=== PATIENT | male | born 1960 | race Caucasian/White ===

== ENCOUNTER → 2016-06-04 | Day surgery (SDC) | payer OTHER ==
[~2016-06-04] VITALS: Ht 177.8 cm; Wt 86.2 kg
[~2016-06-04] MED LIST: AMIODARONE HCL200 M1; AMLODIPINE BESYL5 M1; ASPIRIN EC81 M1; LISINOPRIL40 M1; METOPROLOL SUCC50 M2; SYNTHROID137 MCG
--- NOTE | 2016-06-06 17:59 | Operative Report ---
Operative/Inv Procedure Report Surgery Date: 06/04/16 Name of Procedure: Laparoscopic preperitoneal mesh repair of bilateral hernias, and open mesh repair of umbilical incarcerated hernia Pre-Operative Diagnosis: Bilateral inguinal hernias and incarcerated umbilical hernia Post-Operative Diagnosis: Same Estimated Blood Loss: scant Surgeon/Farm Equipment Mechanic: BRENNA MAN,NICOLAS Kay Anesthesia: general endotracheal tube Operative/Procedure Note Note: Patient was positioned supine on the table. After successful induction of general anesthesia the inguinal and surrounding areas were clipped prepped and draped in the usual sterile fashion. After injection of local anesthetic at the bottom of the umbilicus off the midline, to the right, a 1 1/2 cm curved incision was made with a 15 blade, then deepened through Luna's fascia, sweeping off the rectus sheath. A horizontal 1-1/2 cm incision was made between the fibers, elevating these edges with 0 Vicryl stay sutures. Then retracting the muscle laterally, clearing off the posterior rectus sheath, this space is developed down the midline to the pubis sequentially, with an S retractor, a peanut dissector, then the balloon-camera device, inflating it 30-40 pumps while watching how it opens up the space bilaterally, keeping the epigastrics up. The balloon is then replaced with a 10 mm Linares trocar, inserted, shortened, and secured with the stay sutures, gas turned on to 12 not 15 mm. Then two 5 mm trochars are inserted in the midline just below the camera, spaced by approximately 3 cm. We approached the right side first. Using mostly blunt dissection with peanuts to define the anatomy, first Jose G's ligament is swept off medially, checking the medial spaces, direct and femoral. There were no hernias there. Then briefly skipping over the area of the iliac fat pad, we developed the iliopubic tract out laterally to the iliac crest. Then we returned to the area of the fat pad where the hernia sac and the cord structures are adherent, coursing up into an attenuated deep ring. The cord structures form a triangle with the vas approaching medially and the main vessels approaching laterally, with the apex at the deep ring. There was preperitoneal fat up inside the deep ring, (on both sides greater on the left), in front that was dragged down and out, helping identify the distal lip of the hernia sac, which is then carefully peeled off the cord structures, especially the vas. The cord is also from the underlying iliac fat. Once the hernia sac is from the cord structures down to the base of this "triangle," a Parietex sided mesh with the suture, is marked and stuffed down the camera trocar, then unfurled in a systematic fashion, first with the smaller leaflet passing behind the cord structures, until the flap covers the epigastrics, covering the deep ring, then the larger leaflet is released from the suture, double-covering the smaller one, but also extends laterally out to the iliac crest, medially over Jose G's ligament, and superiorly towards the camera. There is a third part of the mesh, that covers the iliac fat pad like a skirt. The mesh was adjusted back and forth so that the keyhole is centered around the cord , lays flat and the edges are not curling. Next we switched sides and dissected out the left in similar fashion as was symmetric except at the preperitoneal fat up in the deep ring was more and adherent this was the larger hernia clinically. So both sides were indirect defects after getting after dissecting a space in getting the mesh and just like on the right side, they crisscrossed in the middle, we then did a trial run of letting the gas escape a little bit to see how the mesh would lay as the peritoneum comes back down is done, it was difficult to get the mesh to lay flat, patient had a short narrow pelvis so I used an absorbable tackers one each side just lateral to the epigastrics to hold the superior leaflets, then when we're satisfied how the 2 meshes lay, we let rest of the gas escape, pulling out the instruments and trochars. The fascia is closed with a [id number] 0 Vicryl suture, tying the stay sutures on top. Then we closed the 3 skin incisions with interrupted 4-0 Monocryl, 3 for the umbilical, one each for the smaller ones, followed by Mastisol, Steri-Strips and Band-Aids. Then we turned our attention to the umbilical hernia I used a periumbilical incision because this hernia happened to be on the right side of the umbilicus. Dissecting superiorly we cleared off the fascia, the incarcerated herniated fat and overlying sac were dissected circumferentially off the fascia, defining the true edges of the defect, it was about 1 cm wide. It was oriented horizontally, we then inserted the Ventralex coated 4.3 centimeter mesh underneath the defect using the tails to center it and then closed the defect with interrupted 2-0 Maxon sutures in this case 4, incorporating the mesh with each bite. The subcutaneous layer and Luna's fascia were reapproximated to cover. The incision was irrigated and then the skin was reapproximated with a running subcuticular 4-0 Biosyn, followed by Mastisol, Steri-Strips Telfa Tegaderm. EBL minimal lap and sponge counts correct wound expectancy clean IV fluids crystalloid complications none patient tolerated the procedure well was awakened extubated returned to the recovery room in satisfactory condition. Overall estimated blood loss was minimal, lap and sponge counts were correct, wound expectancy was clean, IV fluids crystalloid, complications none, patient tolerated the procedure well, did not significantly minor during extubation and was returned to the recovery room in satisfactory condition.
== END ==
LOC: STS 05-28 07:00
DX: K40.20 Bilateral inguinal hernia, without obstruction or gangrene, not specified as recurrent (principal); K42.0 Umbilical hernia with obstruction, without gangrene; I48.91 Unspecified atrial fibrillation; E03.9 Hypothyroidism, unspecified; I10 Essential (primary) hypertension
CPT/HCPCS: C1781; J0131; J0690; J1100; J2250; J2405